=== PATIENT | male | born 1970 | race Caucasian/White ===

== ENCOUNTER 2024-01-12 07:29 | Day surgery (SDC) | payer OTHER, SELFPAY ==
[2024-01-10 10:33] VITALS: BMI 30.5
[2024-01-12] VITALS (10 sets, daily range): BP systolic 91–131; BP diastolic 48–92; PULSE 74–91; RESP 12–18; TEMP 36.1–36.8; O2SAT 92–98; BMI 30.5
--- NOTE | 2024-01-12 | DI.RAD.S_ITS ---
PROCEDURE: XR ANKLE LT MIN 3V INDICATIONS: SURGERY TECHNIQUE: Single fluoroscopic view of the calcaneus were acquired. COMPARISON: None. FINDINGS: Bones: Signal fluoroscopic view of the calcaneus is provided. Intraoperative changes of the calcaneus noted with orthopedic hardware present. Soft tissues: Limited evaluation IMPRESSION: Single intraoperative radiograph of the calcaneus. See operative notes for details. Dictated by: Kvng Bean M.D. on 01/12/2024 at 16:48 Approved by: Kvng Bean M.D. on 01/12/2024 at 16:51
[2024-01-12] MEDS: LACTATED RINGERS 1,000 ML 42 ML IV (08:10)
--- NOTE | 2024-01-12 08:18 | PM.PREOP ---
Pre-operative Note Interval Note History & Physical reviewed/Exam performed by Physician: Yes Changes to H&P: No
--- NOTE | 2024-01-12 08:20 | SUR.OPER ---
Supine on padded OR bed, head on pillow, arms secured on padded arm boards at <90 degrees abduction, legs uncrossed, safety belt at thigh, tape over blanket over lower legs.
--- NOTE | 2024-01-12 08:24 | P.OP_ITS ---
Operative Date/Time/Diagnoses Date of procedure: 01/12/24 Time of procedure: 09:00 Pre-op diagnosis: Left flatfoot deformity, navicular cuneiform arthritis, gastroc equinus, posterior tibialis tendon dysfunction and dislocation. Pes planovalgus, ankle arthritis Post-op diagnosis: same Procedure & Clinicians Procedure: 1. Fusion navicular cuneiform joint CPT code 78713 left 2. Flexor digitorum longus transfer tendon CPT code 11640 left 3. Osteotomy calcaneus separate site 23835 separate incision left, modifier 59 4. Gastroc recession separate incision separate site CPT code 23470 modifier 59 5. Bone graft autograft donor minor or small CPT code 54837 left 6. Cheilectomy distal tibia CPT code 19977 7. Debridement excision posterior tibialis tendon 8. Re-establishment groove deepening procedure posterior tibia This procedure was performed with a modifier 22 for increased procedural services. This procedure required substantial additional work compared to the typical flatfoot reconstruction including excision of the posterior tibialis tendon that was dislocated around the medial malleolus with spurring. The tendon was removed the spurs were removed from the medial malleolus and a new groove was established on the posterior tibia with a bur and bone wax to allow gliding of the new transferred FDL tendon in the groove and dislocation. This included increased time and intensity of the work and increased technical difficulty of the procedure with the chronic traumatic changes and highly scarred wound bed. During the operation, the services of a physician ophthalmology surgical technician were medically indicated and necessary to provide the exposure of the operative site for the surgical procedure and to maintain the limb in a proper position to carry out the operation safely and efficiently. Without a qualified assistant cross country coach being present this would extended the operative procedure and made the procedure technically more difficult to perform. Same procedure as scheduled: Yes Indications: 53-year-old male with pes planovalgus deformity left foot that has failed conservative treatment. He is advanced arthritis and sag at the navicular cuneiform joint. He has a dislocated and dysfunctional posterior tibialis tendon and hindfoot valgus and gastroc contracture. He has been indicated for pes planovalgus reconstruction with medializing calcaneal osteotomy posterior tibialis tendon excision and flexor digitorum longus transfer, fusion of the navicular cuneiform joint and gastroc recession. Bone graft will be used to h elp with fusion of the navicular cuneiform joint. He also has symptomatic distal spurring of the distal tibia and we discussed cheilectomy of the distal tibia. The risks and benefits of the procedure have been discussed with the patient and given the opportunity to ask questions. The risks of surgery include but are not limited to infection, malunion, nonunion, under correction or over correction of deformity, symptomatic hardware, persistence of pain, damage to nerves and blood vessels, posttraumatic arthritis, DVT, PE, cardiopulmonary complications and . The patient expressed a thorough understanding of the risks and benefits of surgery and has elected to proceed. Consent was signed in the office. 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 Distal tibial anterior spurring Closure Type: primary Prosthetic devices, grafts, tissues, transplants, or devices: Arthrex 5.0 headless cannulated screws for MDCO 55 and 50 mm Arthrex 4.0 headless cannulated screws x2 for navicular cuneiform fusion Arthrex X plate with locking screws x3 for navicular cuneiform fusion Arthrex 5.5 bio tenodesis screw for FDL transfer Arthrex Nitinol staple 20mm for navicular cuneiform fusion DBM bone putty 1 cc Estimated Blood Loss (mL): 100 Blood products transfused: none Tourniquet time (min): 138 Procedure in detail: Patient was seen in the preoperative area the site of surgery marked informed consent confirmed this was the left foot. The patient was seen by anesthesia and a regional block was placed for postoperative pain control. The patient was brought back to the operating room and positioned on the operative table. All bony prominences were well padded. General anesthetic was administered. Well- padded thigh tourniquet was applied. An ipsilateral thigh a bump was placed. The left lower extremity was prepped and draped in standard sterile fashion. A formal time-out procedure was performed confirming the patient's side and site of surgery. All were in agreement. Implants were in the room and accounted for. Esmarch was used for exsanguination and the Tourniquet was elevated 250 mm Hg. Attention was 1st turned to the calf. Gastroc recession. Preoperative Silfverskiold was positive. Midline incision just medial to the midline 14 cm above the heel was made down through the skin subcutaneous tissue. Gastroc fascia was encountered. Sural neurovascular bundle was protected. Fascia was incised. Gastroc was isolated and released from medial to lateral using a dorsiflexion stretch to perform a release and 2 cm gap this allowed dorsiflexion beyond 20? with the knee extended post release. Medial displacement calcaneal osteotomy: Attention was then turned to the lateral heel incision was made along the lateral heel tuberosity posterior to the path of the sural nerve this was taken down through the skin subcutaneous tissue to the lateral calcaneal wall periosteum. Periosteum was elevated and retractors to protect proximally and distally. K-wire was placed for trajectory and checked under fluoroscopy. Then a large saw was used to create the osteotomy to the medial cortex this was then finished with an osteotome. The area was distracted using a lamina barrel raiser and the medial shift was completed shifting proximally 8 mm to obtain neutral alignment. This was provisionally fixed with the K-wires and these were overdrilled and fixed with 2x 5.0 cannulated headless screws from the Arthrex set. Attention was then turned to the medial foot the bump was removed and the foot allowed to externally rotate. A long posteromedial incision was taken along the posterior tibialis tendon to the level of the 1st TMT. The posterior tibialis tendon was dislocated and encountered this was debrided and excised. Next the FDL tendon was isolated and traced to the knot of Shad in the midfoot. This was then tenotomized and sized. The navicular cuneiform joint was identified and debrided with suppressive dissection. This was severely arthritic. The joint was meticulously prepared denuding cartilage down to bleeding cancellous bone. Bone graft harvested from the calcaneus along with DBM putty was placed at the arthrodesis site And this was pinned in a reduction position. At this point in time the FDL tendon was prepared for transfer using the FiberLoop. A pin for the drill was advanced in the navicular plantar medial to dorsal lateral and then overdrilled. The FDL was pulled through correcting the talar uncoverage and secured with a bio tenodesis screw from the Arthrex set. Next attention was returned to the navicular cuneiform fusion which was secured in place with multiple cannulated screws and a medial plate from the Arthrex set with care to avoid the trajectory of the FDL tunnel. And a dorsal staple from the Arthrex set was placed for additional fixation. This was positioned from the navicular to 2nd cuneiform. Next attention was turned proximally to the distal tibia joint this was exposed by reflecting the medial incision anteriorly to identify the tibiotalar joint. The anterior distal tibial burring was identified and was removed using the osteotome for the anterior cheilectomy. Once this was completed alignment was checked on fluoroscopy and confirmed ap propriate hardware placement and correction of deformity. Wounds were thoroughly irrigated tourniquet was released hemostasis was achieved and the wounds were closed in layers with 2-0 PDS 2-0 Vicryl 4-0 Monocryl and 3-0 nylon suture. Additional local anesthetic was injected for postoperative pain control. A sterile posterior and U splint was applied in neutral position. The patient was woken from anesthesia and taken to the recovery room in good condition there were no immediate complications from this procedure. All counts were correct. Post-operative Condition: stable Disposition: PACU Plan for aftercare: Nonweightbearing 6-8 weeks. Elevate above the heart level and splint. Aspirin for DVT prophylaxis. Sutures remain in place a minimum of 3 weeks. Follow up in Orthopedic Clinic as scheduled.
--- NOTE | 2024-01-12 09:00 | SUR.PREOP ---
Block start time [842] . Monitoring initiated and maintained throughout procedure. Oxygen and medications given per anesthesiologist instructions. Patient remained stable throughout procedure, no adverse reactions noted. Block end time [900].
[2024-01-12] MEDS: CEFAZOLIN 2 GM/100 ML PREMIX 100 ML IV (09:13)
--- NOTE | 2024-01-12 09:37 | SUR.OPER ---
Supine on padded OR bed, head on pillow, arms secured on padded arm boards at <90 degrees abduction, legs uncrossed, safety belt at thigh, tape over blanket over non op leg. operative leg on bump blankets and draped free.
[2024-01-12] MEDS: BUPIVACAINE 0.25% (PF) 30 ML, EPINEPHrine 0.15 MG INJ (10:02)
[2024-01-12] MEDS: THROMBIN (RECOMBINANT) 5,000 UNIT VIAL 5000 UNIT TOP (12:01)
[2024-01-12] MEDS: ACETAMINOPHEN IV 1,000 MG/100 ML VIAL 400 MG IV (14:16)
[2024-01-12] MEDS: hydrOXYzine 50 MG/ML INJ 25 MG IM (15:01)
[2024-01-12] MEDS: ONDANSETRON 4 MG ODT SL (15:12)
--- NOTE | 2024-01-12 15:25 | SUR.PHASEII ---
Patient got nauseated after getting dressed. He has been medicated with Zofran ODT and Vistaril. He is now resting, is at the bedside. Will continue to monitor.
== END 2024-01-12 15:45 | disposition home or self-care (01) ==
PROVIDERS: PCP Internal Medicine; Referring Provider Orthopaedic Surgery Foot and Ankle Surgery; Visit Provider Orthopaedic Surgery Foot and Ankle Surgery
PROC: (CPT 28735; principal; 2024-01-12 08:45)
PROC: (CPT 27685; 2024-01-12 08:45)
DX: M76.822 Posterior tibial tendinitis, left leg (principal); M19.072 Primary osteoarthritis, left ankle and foot; G57.82 Other specified mononeuropathies of left lower limb; M62.462 Contracture of muscle, left lower leg; G89.18 Other acute postprocedural pain
CPT/HCPCS: 28740; 27691; 27687; 20900; 27640; 28300; 11043; 64450; 73610; 76000; C1776; J0136; J0171; J0690; J1100; J1170; J1885; J2250; J2704; J3410

== ENCOUNTER 2024-03-08 06:16 | Day surgery (SDC) | payer OTHER, SELFPAY ==
[2024-03-06 11:59] VITALS: BMI 31.8
[2024-03-08 06:51] VITALS: BMI 31.8
[2024-03-08 06:53] VITALS: BP 130/86; PULSE 88; RESP 18; TEMP 36.5; O2SAT 99
--- NOTE | 2024-03-08 07:31 | PM.PREOP ---
Pre-operative Note Interval Note History & Physical reviewed/Exam performed by Physician: Yes Changes to H&P: No
[2024-03-08] MEDS: CEFAZOLIN 2 GM/100 ML PREMIX 100 ML IV (07:50)
--- NOTE | 2024-03-08 08:01 | SUR.OPER ---
Lateral on a mercer bag, head on pillow, gel axillary roll in place, bottom leg bent with gel pad under knee to foot, upper leg straight and supported with pillows. Upper arm supported by pillows and secured over bottom arm to padded arm board. Safety belt at hip, tape over blanket lower legs.
[2024-03-08] MEDS: BUPIVACAINE 0.25% W/ EPI 30 ML VIAL 60 ML INJ (08:07)
[2024-03-08 08:44] VITALS: BP 106/67; PULSE 81; RESP 14; TEMP 36.4; O2SAT 95
[2024-03-08 08:49] VITALS: BP 105/75; PULSE 75; RESP 16; O2SAT 97
--- NOTE | 2024-03-08 08:53 | P.OP_ITS ---
Operative Date/Time/Diagnoses Date of procedure: 03/08/24 Time of procedure: 08:00 Pre-op diagnosis: Eschar wound bed, surgical wound dehiscence, left foot Post-op diagnosis: same Procedure & Clinicians Procedure: Escharotomy left foot and wound closure. CPT code 75170. Modifier 78. Same procedure as scheduled: Yes Indications: A 53-year-old male that underwent a left flatfoot reconstruction. He has had surgical dehiscence and eschar formation at his lateral calcaneal osteotomy site this was initially treated with local wound care has persisted. He has been indicated for an escharotomy and wound closure. The risks and benefits of the procedure have been discussed with the patient and given the opportunity to ask questions. The risks of surgery include but are not limited to infection, wound healing problems, persistence of pain, damage to nerves and blood vessels DVT, PE, cardiopulmonary complications and . The patient expressed a thorough understanding of the risks and benefits of surgery and has elected to proceed. Consent was signed. Surgeon: Pao Garner Click Yes if Unassisted: Yes Anesthesia Type: General and Local Operative Notes Findings: Full-thickness eschar 0.5 cm x 4 cm. Ellipsed sized and removed. No evidence of underlying infection or abscess. Wound was then irrigated curetted and primarily closed in layered fashion. Closure Type: primary Specimen(s): none sent Estimated Blood Loss (mL): 5 Tourniquet time (min): 10 Procedure in detail: Patient was seen in the preoperative area the site of surgery was marked informed consent confirmed. The patient was brought back to the operating room by the anesthesia team positioned supine on operative table. Anesthetic was administered. Patient was then positioned in the lateral decubitus position with the left side up. All bony prominences well padded. A well-padded axillary roll was placed. A nonsterile thigh tourniquet applied. The left lower extremity was prepped and draped in standard sterile fashion. Formal time-out procedure was performed confirming the patient's side and site of surgery administration of appropriate preoperative antibiotic. All were in agreement. Attention turned to the left leg the Esmarch was used for exsanguination tourniquet raised on the thigh to 275 mmHg. The lateral calcaneal eschar was drawn out and ellipsed size. Fifteen blade was used for full-thickness eschar excision. The eschar was sharply excised using a 15 blade. Once this was completed the wound bed was irrigated and then debrided using a curette. No evidence of abscess which demonstrated. This was all the way down to the lateral calcaneal wall. Tourniquet was released. Hemostasis was achieved. The wound was closed in a layered fashion after irrigation with 2-0 Vicryl 4-0 Monocryl and 2-0 and 3-0 nylon suture. Additionally some skin glue was placed in along the incision for additional watertight seal. After this dried 10 cc of 0.25% Marcaine with epinephrine local anesthetic was infiltrated. Sterile dressing with Xeroform gauze and Kerlix and an Puma wrap was applied. The patient was woken from anesthesia drapes were removed. Patient was returned to the stretcher and the postoperative unit. His walking boot was applied. Counts were correct. No immediate complications. Complications: none Post-operative Condition: stable Disposition: PACU Plan for aftercare: A soft dressing in place. May start weight-bearing in the boot 25-50% weight- bearing with the assistive devices. Does not need to wear the boot in bed. Keep the dressing covered and dry For bathing. Follow up in 3 weeks for wound check. And further advancement of weight-bearing.
[2024-03-08 08:54] VITALS: BP 110/71; PULSE 76; RESP 18; O2SAT 97
[2024-03-08 08:59] VITALS: BP 103/64; PULSE 80; RESP 17; O2SAT 96
--- NOTE | 2024-03-08 09:02 | SUR.PHASEI ---
Report given to
[2024-03-08 09:10] VITALS: BP 121/83; PULSE 74; RESP 12; TEMP 36.3; O2SAT 99
== END 2024-03-08 09:50 | disposition home or self-care (01) ==
PROVIDERS: PCP Internal Medicine; Referring Provider Orthopaedic Surgery Foot and Ankle Surgery; Visit Provider Orthopaedic Surgery Foot and Ankle Surgery
PROC: (CPT 13160; principal; 2024-03-08 07:45)
DX: T81.31XA Disruption of external operation (surgical) wound, not elsewhere classified, initial encounter (principal); Z98.890 Other specified postprocedural states
CPT/HCPCS: 13160; J0690; J1100; J1885; J2250; J2405; J2704; J3010